=== PATIENT | female | born 1950 | race Caucasian/White ===

== ENCOUNTER → 2017-06-20 | Outpatient (CLI) | payer BC ==
[~2017-06-20] MED LIST: ASPI-515 PO; ATOR10TA PO; CALC-173 PO; CHOL100011 PO; CLOP75TA52 PO; DILT120C9 PO; DILT120T3 PO; FOLI0.8T2 PO; HEPA5000 SQ; OXYC10TA47 PO; OXYC1TAB7 PO; PANT40TA5 PO; POLY17PO5 PO; POTA20PA25 PO; REGADENOSON 0.4 MG/5 ML SYRINGE ONE; SENN1TAB7 PO; TRIA1CAP3 PO; VANC1.5P IV
== END | disposition home or self-care (01) ==
LOC: CFH 08:36
PROVIDERS: ATTEND Internal Medicine Cardiovascular Disease
DX: I25.10 Atherosclerotic heart disease of native coronary artery without angina pectoris (principal)
CPT/HCPCS: 78452; 93017; A9502; J2785

== ENCOUNTER 2018-10-17 04:12 | Observation (INO) | payer BC, MEDICARE ==
[~2018-10-17] VITALS: Ht 165.1 cm; Wt 80.0 kg
[~2018-10-17 04:12] MED LIST changes: -HEPA5000 SQ; +HEPA50002 SQ; -REGADENOSON 0.4 MG/5 ML SYRINGE ONE; -SENN1TAB7 PO; +SENN1TAB8 PO
--- NOTE | 2018-10-17 04:44 | NUR ---
PT TRANSFERRED FROM [facility] FOR MORE EXTENSIVE CARDIAC WORK UP. PT TOOK NITRO AND NEXIUM PRIOR TO GOING TO HOSPITAL. PAIN HAS RESOLVED. VSS. WAITING TO BE EVALUATED BY ERP. CALL LIGHT IN REACH
[2018-10-17] MEDS ORDERED: RIVA20TA PO (05:13)
[2018-10-17] MEDS ORDERED: ESOM20CA PO (05:13)
[2018-10-17 05:28] LABS: BASOPHILS # (AUTO) 0.02 x10^3/uL (0-0.1); BASOPHILS % (AUTO) 0 % (0-1); EOSINOPHILS % (AUTO) 0 % (1-7); LYMPHOCYTES # (AUTO) 1.08 x10^3/uL (1-3.4); LYMPHOCYTES % (AUTO) 19 % (22-44); MD NO; MEAN CORPUSCULAR HEMOGLOBIN 31.6 pg (27.0-34.8); MEAN CORPUSCULAR HGB CONC 34.2 g/dL (32.4-35.8); MEAN CORPUSCULAR VOLUME 92.3 fL (80-100); MEAN PLATELET VOLUME 7.9 fL (7.4-10.4); MONOCYTES # (AUTO) 0.46 x10^3/uL (0.2-0.8); MONOCYTES % (AUTO) 8 % (2-9); NEUTROPHILS # (AUTO) 4.29 x10^3/uL (1.8-6.8); NEUTROPHILS % (AUTO) 73 % (42-75); PLATELET COUNT 195 x10^3/uL (130-400); RED BLOOD COUNT 4.85 x10^6/uL (3.82-5.3); RED CELL DISTRIBUTION WIDTH 12.9 % (9.6-15.2)
[2018-10-17] MEDS ORDERED: ONDANSETRON ODT 4 MG PO ONE (05:30)
[2018-10-17 05:38] LABS: ALBUMIN 3.6 g/dL (3.4-5.0); ANION GAP 5 mmol/L (5-15); CALCIUM 9.1 mg/dL (8.5-10.1); CHLORIDE 105 mmol/L (98-107)
[2018-10-17] MEDS ORDERED: ONDANSETRON ODT 4 MG ONE (05:38)
[2018-10-17 05:42] LABS: TROPONIN I < 0.015 ng/mL (0.000-0.045)
--- NOTE | 2018-10-17 06:13 | NUR ---
PT RESTING. MED REC COMPLETE. VSS. PT TO BE ADMITTED. PT HAS NO NEEDS AT THIS TIME. CALL LIGHT IN REACH
[2018-10-17] MEDS ORDERED: SODIUM CHLORIDE FLUSH 10ML SYR IVF PRN (06:30)
[2018-10-17] MEDS ORDERED: ENALAPRILAT 1.25 MG/ML, 2ML IVPush PRN (07:00)
[2018-10-17] MEDS ORDERED: ONDANSETRON ODT 4 MG PO PRN (07:00)
[2018-10-17] MEDS ORDERED: ONDANSETRON 2MG/ML, 2ML IVPush PRN (07:00)
[2018-10-17] MEDS ORDERED: ACETAMINOPHEN 325 MG TABLET PO PRN (07:00)
[2018-10-17 07:50] VITALS: BP 128/83
[2018-10-17] MEDS ORDERED: POTASSIUM CHLORIDE 20 MEQ TAB.ER.PRT PO SCH (08:00)
[2018-10-17] MEDS ORDERED: FOLIC ACID 1 MG TABLET PO SCH (09:00)
[2018-10-17] MEDS ORDERED: TRIAMTERENE-HCTZ 37.5/25 MG TABLET PO SCH (09:00)
[2018-10-17] MEDS ORDERED: CALCIUM/VITAMIN D3 250-125 TABLET PO SCH (09:00)
[2018-10-17] MEDS ORDERED: OMEPRAZOLE 20 MG CAPSULE.DR PO SCH (09:00)
[2018-10-17 09:08] LABS: TROPONIN I < 0.015 ng/mL (0.000-0.045)
[2018-10-17 09:13] LABS: FREE T4 (FREE THYROXINE) 1.42 ng/dL (0.76-1.46); THYROID STIMULATING HORMONE 1.69 mIU/L (0.358-3.740)
[2018-10-17 11:51] LABS: TROPONIN I < 0.015 ng/mL (0.000-0.045)
[2018-10-17] MEDS ORDERED: RIVAROXABAN 20 MG TABLET PO SCH (18:00)
[2018-10-17] MEDS ORDERED: DILTIAZEM 120 MG CAP.ER.24H PO SCH (21:00)
[2018-10-17] MEDS ORDERED: ATORVASTATIN 10 MG TABLET PO SCH (21:00)
== END 2018-10-17 14:52 | disposition home or self-care (01) ==
LOC: ED 04:44 → INTOOBSV 06:09 → EDIP 06:09 → 5SO 06:45 → DCLOUNGE 14:41
PROVIDERS: ADMIT Hospitalist; ATTEND Hospitalist
DX: R07.9 Chest pain, unspecified (principal); D68.51 Activated protein C resistance; E78.5 Hyperlipidemia, unspecified; K21.9 Gastro-esophageal reflux disease without esophagitis; R42 Dizziness and giddiness; I10 Essential (primary) hypertension; I25.2 Old myocardial infarction; Z80.52 Family history of malignant neoplasm of bladder; Z86.718 Personal history of other venous thrombosis and embolism; Z87.11 Personal history of peptic ulcer disease; Z87.891 Personal history of nicotine dependence; Z95.5 Presence of coronary angioplasty implant and graft
CPT/HCPCS: 36415; 78452; 80048; 82040; 84439; 84443; 84484; 85025; 93005; 93017; 93306; 99284; A9502; C9898; G0378; Q0162

== ENCOUNTER 2018-12-15 11:07 | Inpatient (IN) | payer MEDICARE, BC ==
[~2018-12-15] VITALS: Ht 165.1 cm; Wt 81.0 kg
[~2018-12-15 11:07] MED LIST changes: +ESOM20CA PO; +RIVA20TA PO; +SENN-177 PO; -SENN1TAB8 PO
--- NOTE | 2018-12-15 11:10 | NUR ---
JANELLE STEVENS FROM [facility] WITH DIAGNOSED BOWEL OBSTRUCTION, NG IN PLACE, PT ON 2L NC. RESTING IN [place] AT THIS TIME. AWAITING HOSPITALIST AND ADMIT ORDERS. PT MEDICATED WITH ZOFRAN
[2018-12-15] MEDS ORDERED: ONDANSETRON 2MG/ML, 2ML IVPush STA ×2 (11:28→11:39)
[2018-12-15] MEDS ORDERED: ONDANSETRON 2MG/ML, 2ML ONE (11:33)
[2018-12-15] MEDS: NS + 20MEQ KCL 1,000 ML IV SCH (11:53)
[2018-12-15] MEDS ORDERED: ONDANSETRON 2MG/ML, 2ML IVPush PRN (12:00)
[2018-12-15] MEDS ORDERED: ENALAPRILAT 1.25 MG/ML, 2ML IVPush PRN (12:00)
[2018-12-15] MEDS ORDERED: PLEASE ENTER HEIGHT AND WEIGHT MC SCH (12:00)
--- NOTE | 2018-12-15 12:21 | NUR ---
REPORT GIVEN TO S[facility], PER SURGERY REQUEST OBTAIN ADDITIONAL LABS BEFORE SENDING TO FLOOR. XRAY AND LAB AT BEDSIDE. WILL TX TO FLOOR WHEN LABS COMPLETE PER
[2018-12-15 12:41] LABS: BASOPHILS % (AUTO) 0 % (0-1); EOSINOPHILS % (AUTO) 0 % (1-7); LYMPHOCYTES # (AUTO) 0.38 x10^3/uL (1-3.4); LYMPHOCYTES % (AUTO) 3 % (22-44); MD NO; MEAN CORPUSCULAR HGB CONC 33.7 g/dL (32.4-35.8); MEAN PLATELET VOLUME 7.7 fL (7.4-10.4); MONOCYTES # (AUTO) 0.88 x10^3/uL (0.2-0.8); MONOCYTES % (AUTO) 7 % (2-9); NEUTROPHILS # (AUTO) 12.39 x10^3/uL (1.8-6.8); NEUTROPHILS % (AUTO) 91 % (42-75); PLATELET COUNT 204 x10^3/uL (130-400); RED BLOOD COUNT 4.52 x10^6/uL (3.82-5.3); RED CELL DISTRIBUTION WIDTH 12.4 % (9.6-15.2)
[2018-12-15 12:54] LABS: ALANINE AMINOTRANSFERASE 130 U/L (12-78); ALBUMIN 3.1 g/dL (3.4-5.0); ANION GAP 6 mmol/L (5-15); CHLORIDE 102 mmol/L (98-107); CREATININE 0.81 mg/dL (0.55-1.02)
[2018-12-15 12:56] LABS: ALKALINE PHOSPHATASE 177 U/L (45-117); BILIRUBIN,TOTAL 1.5 mg/dL (0.2-1.0); TOTAL PROTEIN 7.2 g/dL (6.4-8.2)
--- NOTE | 2018-12-15 13:00 | NUR ---
PRECEPTOR/BREAK RN: PT BEING TRANSPORTED TO FLOOR. PT LEFT WITH ALL PERSONAL BELONGINGS.
[2018-12-15] MEDS ORDERED: HEPARIN 5,000 UNITS/ML, 1ML IV ONE (13:30)
[2018-12-15] MEDS ORDERED: HEPARIN 5,000 UNITS/ML, 1ML IV PRN (13:30)
[2018-12-15 13:58] VITALS: BP 106/67
[2018-12-15] MEDS: HEPARIN 25,000 UNITS/500ML PMX 500 ML IV PRN (16:20)
[2018-12-15] MEDS: morphine SULFATE 10 MG/ML, 1ML IVPush PRN ×3 (16:22→23:54)
[2018-12-15 19:58] VITALS: BP 110/66
[2018-12-15 21:06] LABS: CULTURE INDICATED? YES; MICROSCOPIC INDICATED
[2018-12-16 01:22] VITALS: BP 104/62
[2018-12-16] MEDS: NS + 20MEQ KCL 1,000 ML IV SCH ×3 (02:36→22:06)
[2018-12-16] MEDS: morphine SULFATE 10 MG/ML, 1ML IVPush PRN ×3 (03:10→15:32)
[2018-12-16 05:13] LABS: BASOPHILS # (AUTO) 0.03 x10^3/uL (0-0.1); BASOPHILS % (AUTO) 0 % (0-1); EOSINOPHILS # (AUTO) 0.01 x10^3/uL (0-0.4); EOSINOPHILS % (AUTO) 0 % (1-7); LYMPHOCYTES # (AUTO) 0.57 x10^3/uL (1-3.4); LYMPHOCYTES % (AUTO) 5 % (22-44); MD NO; MEAN CORPUSCULAR HEMOGLOBIN 31.5 pg (27.0-34.8); MEAN CORPUSCULAR HGB CONC 34.2 g/dL (32.4-35.8); MEAN CORPUSCULAR VOLUME 92.2 fL (80-100); MEAN PLATELET VOLUME 8.1 fL (7.4-10.4); MONOCYTES # (AUTO) 0.94 x10^3/uL (0.2-0.8); MONOCYTES % (AUTO) 8 % (2-9); NEUTROPHILS # (AUTO) 10.27 x10^3/uL (1.8-6.8); NEUTROPHILS % (AUTO) 87 % (42-75); PLATELET COUNT 187 x10^3/uL (130-400); RED BLOOD COUNT 4.18 x10^6/uL (3.82-5.3); RED CELL DISTRIBUTION WIDTH 12.6 % (9.6-15.2)
[2018-12-16 05:34] LABS: ALBUMIN 2.7 g/dL (3.4-5.0); ANION GAP 7 mmol/L (5-15); CALCIUM 7.9 mg/dL (8.5-10.1); CHLORIDE 107 mmol/L (98-107)
[2018-12-16 05:38] LABS: ALANINE AMINOTRANSFERASE 88 U/L (12-78); ALKALINE PHOSPHATASE 146 U/L (45-117); BILIRUBIN,TOTAL 0.7 mg/dL (0.2-1.0); CREATININE 0.63 mg/dL (0.55-1.02); TOTAL PROTEIN 6.6 g/dL (6.4-8.2)
[2018-12-16 06:50] VITALS: BP 122/72
[2018-12-16 13:26] VITALS: BP 112/66
[2018-12-16] MEDS ORDERED: POTASSIUM CHLORIDE 40 MEQ in SODIUM CHLORIDE 0.9% 500 ML IV ONE (14:30)
[2018-12-16 19:41] VITALS: BP 131/84
[2018-12-17 01:20] VITALS: BP 124/77
[2018-12-17] MEDS: ACETAMINOPHEN 325 MG TABLET PO PRN ×4 (01:30→21:02)
[2018-12-17 05:48] LABS: CHLORIDE 112 mmol/L (98-107)
[2018-12-17 05:55] LABS: BASOPHILS # (AUTO) 0.03 x10^3/uL (0-0.1); BASOPHILS % (AUTO) 0 % (0-1); EOSINOPHILS # (AUTO) 0.01 x10^3/uL (0-0.4); EOSINOPHILS % (AUTO) 0 % (1-7); LYMPHOCYTES # (AUTO) 0.77 x10^3/uL (1-3.4); LYMPHOCYTES % (AUTO) 9 % (22-44); MD NO; MEAN CORPUSCULAR HEMOGLOBIN 31.6 pg (27.0-34.8); MEAN CORPUSCULAR HGB CONC 33.9 g/dL (32.4-35.8); MEAN CORPUSCULAR VOLUME 93.2 fL (80-100); MEAN PLATELET VOLUME 7.9 fL (7.4-10.4); MONOCYTES # (AUTO) 0.71 x10^3/uL (0.2-0.8); MONOCYTES % (AUTO) 8 % (2-9); NEUTROPHILS # (AUTO) 7.48 x10^3/uL (1.8-6.8); NEUTROPHILS % (AUTO) 83 % (42-75); PLATELET COUNT 199 x10^3/uL (130-400); RED BLOOD COUNT 3.69 x10^6/uL (3.82-5.3)
[2018-12-17 05:59] LABS: ANION GAP 6 mmol/L (5-15); CALCIUM 7.7 mg/dL (8.5-10.1); CREATININE 0.51 mg/dL (0.55-1.02)
[2018-12-17 06:24] VITALS: BP 123/84
[2018-12-17] MEDS: HEPARIN 25,000 UNITS/500ML PMX 500 ML IV PRN (06:55)
[2018-12-17] MEDS: NS + 20MEQ KCL 1,000 ML IV SCH (09:15)
[2018-12-17] MEDS ORDERED: TEMPLATE NON-FORMULARY MED. (Rivaroxaban** (Xarelto**) 20 MG) PO SCH (09:30)
[2018-12-17] MEDS: TRIAMTERENE-HCTZ 37.5/25 MG TABLET PO SCH (09:57)
[2018-12-17] MEDS: OMEPRAZOLE 20 MG CAPSULE.DR PO SCH (09:57)
[2018-12-17 13:10] VITALS: BP 120/81
[2018-12-17] MEDS: RIVAROXABAN 20 MG TABLET PO SCH (16:00)
[2018-12-17 18:43] VITALS: BP 116/71
[2018-12-17] MEDS ORDERED: ATORVASTATIN 10 MG TABLET PO SCH (21:00)
[2018-12-17] MEDS ORDERED: DILTIAZEM 120 MG CAP.ER.24H PO SCH (21:00)
[2018-12-18 01:13] VITALS: BP 145/83
[2018-12-18] MEDS: ACETAMINOPHEN 325 MG TABLET PO PRN ×2 (01:16→09:38)
[2018-12-18 06:22] LABS: ANION GAP 8 mmol/L (5-15); CALCIUM 8.4 mg/dL (8.5-10.1); CHLORIDE 105 mmol/L (98-107)
[2018-12-18 06:23] LABS: CREATININE 0.57 mg/dL (0.55-1.02)
[2018-12-18 07:18] VITALS: BP 144/83
[2018-12-18] MEDS ORDERED: CALCIUM/VITAMIN D3 250-125 TABLET PO SCH (09:00)
[2018-12-18] MEDS ORDERED: FOLIC ACID 1 MG TABLET PO SCH (09:00)
[2018-12-18] MEDS: OMEPRAZOLE 20 MG CAPSULE.DR PO SCH (09:38)
[2018-12-18] MEDS: TRIAMTERENE-HCTZ 37.5/25 MG TABLET PO SCH (09:38)
[2018-12-18] MEDS: RIVAROXABAN 20 MG TABLET PO SCH (09:42)
[2018-12-18] MEDS ORDERED: METH500T97 PO (11:10)
[2018-12-18] MEDS ORDERED: ONDA4TAB7 PO (11:10)
== END 2018-12-18 12:50 | disposition home or self-care (01) | DRG 388 ==
LOC: ED 11:26 → EDIP 11:27 → ED 11:42 → 3NE 13:02 → DCLOUNGE 12-18 12:35
PROVIDERS: ADMIT Internal Medicine; ATTEND Internal Medicine
DX: K56.601 Complete intestinal obstruction, unspecified as to cause (principal); K72.00 Acute and subacute hepatic failure without coma; E87.1 Hypo-osmolality and hyponatremia; D68.51 Activated protein C resistance; D68.2 Hereditary deficiency of other clotting factors; E44.0 Moderate protein-calorie malnutrition; R11.2 Nausea with vomiting, unspecified; K44.9 Diaphragmatic hernia without obstruction or gangrene; R10.9 Unspecified abdominal pain; E87.6 Hypokalemia; I11.9 Hypertensive heart disease without heart failure; I25.10 Atherosclerotic heart disease of native coronary artery without angina pectoris; I25.2 Old myocardial infarction; K21.9 Gastro-esophageal reflux disease without esophagitis; R73.9 Hyperglycemia, unspecified; Z82.49 Family history of ischemic heart disease and other diseases of the circulatory system; Z86.718 Personal history of other venous thrombosis and embolism; Z95.5 Presence of coronary angioplasty implant and graft; D72.829 Elevated white blood cell count, unspecified
CPT/HCPCS: 36415; 74018; 74250; 80048; 80053; 81001; 83605; 83690; 83735; 85025; 85520; 87086; 96374; 99285; G0378; J1644; J2405; J3480; J2270; J7040